=== PATIENT | female | born 1960 | race Caucasian/White ===

== ENCOUNTER → 2024-11-10 | Outpatient (CLI) | payer OTHER ==
[2024-11-14 10:39] LABS: CALPROTECTIN,FECAL <5 ug/g (<=49)
== END ==
LOC: LAB SHORT 08:30 → LAB 08:30
PROVIDERS: Nurse Practitioner Family
DX: R19.7 Diarrhea, unspecified (principal)
CPT/HCPCS: 83993; 87338

== ENCOUNTER → 2024-11-25 | Outpatient (CLI) | payer OTHER | END | disposition home or self-care (01) | LOC: LAB 11:00 → LAB SHORT 11:00 | DX: R19.7 Diarrhea, unspecified (principal) | CPT/HCPCS: 87015; 87045; 87046; 87205; 87899 ==

== ENCOUNTER 2025-05-12 09:00 | Day surgery (SDC) | payer OTHER ==
[~2025-05-12] VITALS: Ht 180.3 cm; Wt 63.2 kg
[~2025-05-12 09:00] MED LIST: Lactated Ringer's 1,000 ML IV ONE; propofoL 50 ML IV ONE
[2025-05-12] MEDS ORDERED: CARV3.125 (09:51)
[2025-05-12] MEDS ORDERED: ALDACTONE25 MG (09:51)
[2025-05-12] MEDS ORDERED: Aspir 8181 MG (09:51)
[2025-05-12] MEDS ORDERED: FURO20 (09:51)
[2025-05-12] MEDS ORDERED: PANT20 (09:52)
[2025-05-12] MEDS ORDERED: GABA100 (09:52)
[2025-05-12] MEDS ORDERED: ATOR40TA (09:52)
[2025-05-12] MEDS ORDERED: ALBU90OI (09:55)
[2025-05-12] MEDS ORDERED: Lactated Ringer's 1,000 ML IV ONE (10:33)
== END 2025-05-12 11:32 | disposition home or self-care (01) ==
LOC: ORSCSDS 09:00
PROVIDERS: Specialist
PROC: 0DB68ZX Excision of Stomach, Via Natural or Artificial Opening Endoscopic, Diagnostic (ICD-10-PCS; principal; 2025-05-12 10:30)
PROC: 0DB58ZX Excision of Esophagus, Via Natural or Artificial Opening Endoscopic, Diagnostic (ICD-10-PCS; principal; 2025-05-12 10:30)
PROC: 0DB98ZX Excision of Duodenum, Via Natural or Artificial Opening Endoscopic, Diagnostic (ICD-10-PCS; principal; 2025-05-12 10:30)
DX: R10.11 Right upper quadrant pain (principal); K21.9 Gastro-esophageal reflux disease without esophagitis; R63.4 Abnormal weight loss; R10.13 Epigastric pain; R19.7 Diarrhea, unspecified; B96.81 Helicobacter pylori [H. pylori] as the cause of diseases classified elsewhere; K29.50 Unspecified chronic gastritis without bleeding; Z79.899 Other long term (current) drug therapy
CPT/HCPCS: 88305; 88341; 88342; J2704; J7120